=== PATIENT | male | born 1990 | race Caucasian/White ===

== ENCOUNTER 2020-10-31 17:09 | Emergency (ER) | payer OTHER ==
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
--- NOTE | 2020-10-31 18:27 | CR ---
Right shoulder: 3 views of the right shoulder were obtained. Comparison: No prior shoulder exam. Findings: Several buttons are seen which overlap bone on the axillary view. Glenohumeral and acromioclavicular joint appear normal. No discrete bony abnormality is appreciated. Soft tissues: No soft tissue calcifications or other soft tissue abnormality is appreciated. Impression: 1. Slightly limited exam due to clothing artifact. 2. Right shoulder study is otherwise unremarkable. Diagnostic code #2
[2020-10-31 18:56] VITALS: BP 98/83; PULSE 96
== END 2020-10-31 18:57 | disposition home or self-care (01) ==
LOC: JD.ED 17:09
DX: M25.511 Pain in right shoulder (principal); F17.210 Nicotine dependence, cigarettes, uncomplicated
CPT/HCPCS: 73030-26-RT; 73030-RT; 99282; 99283-25

== ENCOUNTER 2021-03-12 11:40 | Emergency (ER) | payer OTHER ==
[2021-03-12 12:16] VITALS: BP 122/78; PULSE 98
[2021-03-12] MEDS ORDERED: Sodium Chloride 0.9% 10 ML Syringe FLUSH PRN (12:32)
[2021-03-12] MEDS ORDERED: Sodium Chloride 0.9% 1,000 ML IV ONE (12:32)
[2021-03-12] MEDS ORDERED: Ondansetron 4 MG/2 ML SDV IVPUSH ONE (12:32)
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
[2021-03-12 13:26] LABS: CORONAVIRUS COVID-19 NAA NEGATIVE (NEGATIVE)
== END 2021-03-12 12:40 | disposition left against medical advice (07) ==
LOC: JD.ED 11:40
DX: R11.2 Nausea with vomiting, unspecified (principal); R19.7 Diarrhea, unspecified; J02.9 Acute pharyngitis, unspecified; Z72.0 Tobacco use; Z20.822 Contact with and (suspected) exposure to COVID-19
CPT/HCPCS: 0240U; 87651; 99284; 99283

== ENCOUNTER 2022-02-19 21:49 | Emergency (ER) | payer SELFPAY ==
[2022-02-19 22:01] VITALS: BP 130/93; PULSE 108
[2022-02-19] MEDS ORDERED: Sodium Chloride 0.9% 1,000 ML IV ONE (22:12)
[2022-02-19] MEDS ORDERED: Ondansetron 4 MG/2 ML SDV IVPUSH ONE (22:12)
[2022-02-19] MEDS ORDERED: Famotidine 20 MG/2 ML SDV IVPUSH ONE (22:17)
[2022-02-19] MEDS ORDERED: Alum Hydrox/Mag Hydrox/Simeth 30 ML, Lidocaine 2% 15 ML PO ONE ×2 (22:17)
== END 2022-02-20 00:41 | disposition home or self-care (01) ==
LOC: JD.ED 21:49
DX: K29.00 Acute gastritis without bleeding (principal); F10.10 Alcohol abuse, uncomplicated; Z72.0 Tobacco use; Y90.5 Blood alcohol level of 100-119 mg/100 ml
CPT/HCPCS: 36415; 80053; 80307; 83690; 83735; 85025; 85610; 96374; 96375; 99284; A9270; J2405; J3490; J7030

== ENCOUNTER 2022-09-15 23:06 | Emergency (ER) | payer SELFPAY ==
[2022-09-15 23:25] VITALS: BP 135/82; PULSE 97
== END 2022-09-16 00:45 | disposition left against medical advice (07) ==
LOC: JD.ED 23:06
DX: S00.01XA Abrasion of scalp, initial encounter (principal); F17.210 Nicotine dependence, cigarettes, uncomplicated; Y04.8XXA Assault by other bodily force, initial encounter
CPT/HCPCS: 70450; 70450-26; 99284